=== PATIENT | female | born 1995 | race Caucasian/White ===

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

== ENCOUNTER 2017-11-06 01:27 | Inpatient (IN) | payer BC ==
[2017-11-06 02:09] LABS: ABS Basophils 0 10^3/ul (0-0.2); ABS Eosinophils 0 10^3/ul (0-0.6); ABS Lymphocytes 1.7 10^3/ul (1.0-4.8); ABS Monocytes 0.3 10^3/ul (0-0.8); ABS Neutrophils 3.6 10^3/ul (1.5-7.7); ABS Nucleated RBC 0 10^3/ul; Eosinophil % 0.3 % (0-6); Hematocrit 41 % (35-47); Hemoglobin 13.6 g/dl (12.0-16.0); Lymphocyte % 29.7 % (25-47); Mean Corpuscular HGB Conc 34 g/dl (31-36); Mean Corpuscular Hemoglobin 29 pg (27-31); Mean Corpuscular Volume 87 fL (80-97); Mean Platelet Volume 8.8 um3 (7.4-10.4); Nucleated Red Blood Cells % 0; Platelet Count 223 10^3/ul (150-450); Red Blood Count 4.66 10^6/ul (4.0-5.4); Red Cell Distribution Width 14 % (10.5-15); White Blood Count 5.6 10^3/ul (3.5-10.8)
[2017-11-06 02:25] LABS: EGFR Non-African American 98.5 (>60)
[2017-11-06 02:44] LABS: Urine Appearance Clear; Urine Blood Negative (Negative); Urine Color Yellow; Urine Ketones Negative (Negative); Urine Protein Negative (Negative); Urine Specific Gravity 1.014 (1.010-1.030); Urine Urobilinogen Negative (Negative)
--- NOTE | 2017-11-06 05:53 | ED ---
Nick Gallagher Tecjoon, scribed for Flako Lawrence MD on 11/06/17 at 0159 . Psychiatric Complaint - HPI Summary HPI Summary: This patient is a 22 year old female BIBA to [facility] with a chief complaint of SI for approx. a year and a half. Patient presents to the hospital voluntarily for MHE. Patient states that she has been drinking, but denies any other drugs. Patient states she has SI, but denies a plan. Patient goes to the [facility] for therapy. Patient was supposed to go in June, but appointment was cancelled. Symptoms aggravated by nothing. Symptoms alleviated by nothing. Patient denies a plan, but states that shes thought about drowning herself. - History Of Current Complaint Chief Complaint: EDMentalHealth Time Seen by Provider: 11/06/17 01:47 Hx Obtained From: Patient Hx Last Menstrual Period: 08/07/16 Onset/Duration: Lasting Weeks, Still Present Timing: Constant Character: Depressed, Anxious Aggravating Factor(s): Nothing Alleviating Factor(s): Nothing Has Suicidal: Reports: Thoughts. Denies: With A Plan - Allergies/Home Medications Allergies/Adverse Reactions: Allergies Allergy/AdvReac Type Severity Reaction Status Date / Time No Known Allergies Allergy Verified 08/31/16 20:50 PMH/Surg Hx/FS Hx/Imm Hx Previously Healthy: Yes Opthamlomology History: Denies: Hx Legally Blind EENT History: Denies: Hx Deafness Psychiatric History: Reports: Hx Anxiety, Hx Depression Infectious Disease History: No Infectious Disease History: Denies: Traveled Outside the [place] in Last 30 Days - Family History Known Family History: Positive: Hypertension - Social History Alcohol Use: Weekly Hx Substance Use: No Substance Use Type: Reports: None Hx Tobacco Use: No Smoking Status (MU): Never Smoked Tobacco Review of Systems Negative: Fever Positive: Depressed, Other - SI All Other Systems Reviewed And Are Negative: Yes Physical Exam - Summary Physical Exam Summary: Appearance: Well appearing, no pain distress Skin: warm, dry, reflects adequate perfusion Head/face: normal Eyes: EOMI, TESSY ENT: normal Neck: supple, non-tender Respiratory: CTA, breath sounds present Cardiovascular: RRR, pulses symmetrical Abdomen: non-tender, soft Bowel Sounds: present Musculoskeletal: normal, strength/ROM intact Neuro: normal, sensory motor intact, A&Ox3 Psych: Depressed affect Triage Information Reviewed: Yes Vital Signs On Initial Exam: Initial Vitals Temp Pulse Resp BP Pulse Ox 98.3 F 74 16 124/84 100 11/06/17 01:42 11/06/17 01:42 11/06/17 01:42 11/06/17 01:42 11/06/17 01:42 Vital Signs Reviewed: Yes Diagnostics - Vital Signs Vital Signs Temp Pulse Resp BP Pulse Ox 11/06/17 01:42 98.3 F 74 16 124/84 100 - Laboratory Lab Results: Lab Results 11/06/17 11/06/17 11/06/17 Range/Units 01:52 01:57 02:10 WBC 5.6 (3.5-10.8) 10^3/ul RBC 4.66 (4.0-5.4) 10^6/ul Hgb 13.6 (12.0-16.0) g/dl Hct 41 (35-47) % MCV 87 (80-97) fL MCH 29 (27-31) pg MCHC 34 (31-36) g/dl RDW 14 (10.5-15) % Plt Count 223 (150-450) 10^3/ul MPV 8.8 (7.4-10.4) um3 Neut % (Auto) 64.5 (38-83) % Lymph % (Auto) 29.7 (25-47) % [place] % (Auto) 5.0 (0-7) % Eos % (Auto) 0.3 (0-6) % Baso % (Auto) 0.5 (0-2) % Absolute Neuts (auto) 3.6 (1.5-7.7) 10^3/ul Absolute Lymphs (auto) 1.7 (1.0-4.8) 10^3/ul Absolute Monos (auto) 0.3 (0-0.8) 10^3/ul Absolute Eos (auto) 0 (0-0.6) 10^3/ul Absolute Basos (auto) 0 (0-0.2) 10^3/ul Absolute Nucleated RBC 0 10^3/ul Nucleated RBC % 0 Sodium 140 (139-145) mmol/L Potassium 3.6 (3.5-5.0) mmol/L Chloride 106 (101-111) mmol/L Carbon Dioxide 23 (22-32) mmol/L Anion Gap 11 (2-11) mmol/L BUN 10 (6-24) mg/dL Creatinine 0.75 (0.51-0.95) mg/dL Est GFR ( Amer) 126.7 (>60) Est GFR (Non-Af Amer) 98.5 (>60) BUN/Creatinine Ratio 13.3 (8-20) Glucose 112 H (70-100) mg/dL Calcium 8.9 (8.6-10.3) mg/dL Total Bilirubin 0.30 (0.2-1.0) mg/dL AST 13 (13-39) U/L ALT 10 (7-52) U/L Alkaline Phosphatase 59 (34-104) U/L Total Protein 7.3 (6.4-8.9) g/dL Albumin 4.5 (3.2-5.2) g/dL Globulin 2.8 (2-4) g/dL Albumin/Globulin Ratio 1.6 (1-3) TSH 1.09 (0.34-5.60) mcIU/mL Beta HCG, Quant < 0.60 mIU/mL Urine Color Urine Appearance Urine pH (5-9) Ur Specific Walker (1.010-1.030) Urine Protein (Negative) Urine Ketones (Negative) Urine Blood (Negative) Urine Nitrate (Negative) Urine Bilirubin (Negative) Urine Urobilinogen (Negative) Ur Leukocyte Esterase (Negative) Urine Glucose (Negative) Salicylates < 2.50 (<30) mg/dL Urine Opiates Screen None detected (None Detect) Acetaminophen < 15 mcg/mL Ur Barbiturates Screen Presumptive positive A (None Detect) Ur Phencyclidine Scrn None detected (None Detect) Ur Amphetamines Screen None detected (None Detect) U Benzodiazepines Scrn None detected (None Detect) Urine Cocaine Screen None detected (None Detect) U Cannabinoids Screen None detected (None Detect) Serum Alcohol 128 H (<10) mg/dL 11/06/17 Range/Units 02:10 WBC (3.5-10.8) 10^3/ul RBC (4.0-5.4) 10^6/ul Hgb (12.0-16.0) g/dl Hct (35-47) % MCV (80-97) fL MCH (27-31) pg MCHC (31-36) g/dl RDW (10.5-15) % Plt Count (150-450) 10^3/ul MPV (7.4-10.4) um3 Neut % (Auto) (38-83) % Lymph % (Auto) (25-47) % [place] % (Auto) (0-7) % Eos % (Auto) (0-6) % Baso % (Auto) (0-2) % Absolute Neuts (auto) (1.5-7.7) 10^3/ul Absolute Lymphs (auto) (1.0-4.8) 10^3/ul Absolute Monos (auto) (0-0.8) 10^3/ul Absolute Eos (auto) (0-0.6) 10^3/ul Absolute Basos (auto) (0-0.2) 10^3/ul Absolute Nucleated RBC 10^3/ul Nucleated RBC % Sodium (139-145) mmol/L Potassium (3.5-5.0) mmol/L Chloride (101-111) mmol/L Carbon Dioxide (22-32) mmol/L Anion Gap (2-11) mmol/L BUN (6-24) mg/dL Creatinine (0.51-0.95) mg/dL Est GFR ( Amer) (>60) Est GFR (Non-Af Amer) (>60) BUN/Creatinine Ratio (8-20) Glucose (70-100) mg/dL Calcium (8.6-10.3) mg/dL Total Bilirubin (0.2-1.0) mg/dL AST (13-39) U/L ALT (7-52) U/L Alkaline Phosphatase (34-104) U/L Total Protein (6.4-8.9) g/dL Albumin (3.2-5.2) g/dL Globulin (2-4) g/dL Albumin/Globulin Ratio (1-3) TSH (0.34-5.60) mcIU/mL Beta HCG, Quant mIU/mL Urine Color Yellow Urine Appearance Clear Urine pH 6.0 (5-9) Ur Specific Walker 1.014 (1.010-1.030) Urine Protein Negative (Negative) Urine Ketones Negative (Negative) Urine Blood Negative (Negative) Urine Nitrate Negative (Negative) Urine Bilirubin Negative (Negative) Urine Urobilinogen Negative (Negative) Ur Leukocyte Esterase Negative (Negative) Urine Glucose Negative (Negative) Salicylates (<30) mg/dL Urine Opiates Screen (None Detect) Acetaminophen mcg/mL Ur Barbiturates Screen (None Detect) Ur Phencyclidine Scrn (None Detect) Ur Amphetamines Screen (None Detect) U Benzodiazepines Scrn (None Detect) Urine Cocaine Screen (None Detect) U Cannabinoids Screen (None Detect) Serum Alcohol (<10) mg/dL Result Diagrams: 11/06/17 01:52 11/06/17 01:57 Lab Statement: Any lab studies that have been ordered have been reviewed, and results considered in the medical decision making process. Course/Dx - Course Course Of Treatment: Pt had been drinking. Sobered and cleared medically for crisis eval. After eval she was accepted for voluntary admission to psychiatric unit. - Differential Dx/Clinical Impression Differential Diagnosis/HQI/PQRI: Positive: Alcohol Intoxication, Depression, Suicidal Ideation Provider Diagnosis: Suicidal ideation, Depression Discharge - Sign-Out/Discharge Documenting (check all that apply): Discharge - Discharge Plan Condition: Stable Disposition: HOME - Billing Disposition and Condition Condition: STABLE Disposition: HOME The documentation as recorded by the Nick reed Tecjoon accurately reflects the service I personally performed and the decisions made by , Flako Lawrence MD.
[2017-11-06] MEDS ORDERED: Vitamin THERAPEUTIC TAB ONE (06:22)
[2017-11-06] MEDS ORDERED: Al Hydrox/Mg Hydrox/Simet LIQ* 30 ML UDC PO PRN (06:37)
[2017-11-06] MEDS ORDERED: Acetaminophen TAB* 325 MG PO PRN (06:37)
[2017-11-06] MEDS: Vitamin THERAPEUTIC TAB PO SCH (07:41)
--- NOTE | 2017-11-06 22:40 | HP ---
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 CHIEF COMPLAINT: "I was intoxicated and thinking about ending my life by drowning myself." HISTORY OF PRESENT ILLNESS: This is first lifetime psychiatric hospitalization for Gem who called the ambulance because she was feeling severely depressed and thinking about suicide by drowning herse lf in the bathtub. Although Gem denies any thoughts of suicide at this time, she acknowledges that she has been depressed since she was a high school student and her depression has been worse in the recent past. She reports of almost a week or more, at this time, of sadness, crying spells, low self -esteem, and low self-worth. Thoughts of suicide has been there, but it got worse recently and last night she was thinking about drowning herself into her bathtub. She also reports that she has been d rinking, at least a couple of times, with her peers or senior friends and was getting drunk. Last ni ght her blood alcohol level was 128, which is over legal limit. She also reported in the emergency r oom that if she was left alone by herself she would have killed herself. She thinks she is less than others and not happy about herself. She also wants to belong to the group or a group of peers, and n ot be left alone. She started drinking only because of that reason. PAST PSYCHIATRIC HISTORY: She has been depressed since she was 17 or 18, received treatment in the [facility] sporadically and since she came to [facility] she saw mental health professionals at [facility]. She took some antidepressant, that she does not remember the name of, for more than a ye ar and took herself off because she thought she was less as an individual because of the medications and then her depression got worse and she was started back on Lexapro, which made her too sedated dur ing the daytime that she could not stay up in her class and she took herself off of Lexapro. Now, wi th worsening depression, she has been trying to get an appointment with her psychiatrist or any psych iatrist to get back to medications, but repeatedly her appointments were cancelled and she was resort ing to drinking more than usual and that led to her coming to the emergency room and hospitalization last evening. She is not on any medication at this time. PAST MEDICAL HISTORY: Unremarkable. ALLERGIES: No known drug allergies. SUBSTANCE ABUSE HISTORY: Other than drinking alcohol twice a week and sometimes excessively, she den ies using any street drugs. She also denies experiencing any withdrawal symptoms if she did not drin k or when she is not drinking. FAMILY HISTORY: She reports that her younger brother suffers from OCD and anxiety. PERSONAL AND SOCIAL HISTORY: Gem is from [place], born and raised in a farming community. Her fa ther is a hodge, that is why she came to study about farming or agricultural science at [employer]. Flaquito morgan is not involved in any significant relationships. No legal problems at all. PHYSICAL EXAMINATION GENERAL: Gem is a moderately obese, average height, female who is appropriately dressed and fairly groomed, with fair personal hygiene. HEENT: Head: Atraumatic, normocephalic. Eyes: EOMI, PERRLA. Oral Cavity: Good oral hygiene. In tact teeth. NECK: Supple, midline trachea, no lymph node or thyroid enlargement. RESPIRATORY: Breath sounds audible bilaterally. No added sounds. CARDIOVASCULAR: Heart rate regular. S1 and S2 only. ABDOMEN: Moderately obese, but soft and nontender. No organomegaly. Positive bowel sounds. MUSCULOSKELETAL: With normal strength and intact ROM. NEUROLOGIC: Alert and oriented to time, place, and person. Cranial nerves II through XII intact francine ssly. MENTAL STATUS EXAM: Alert and oriented to time, place, and person, makes good eye contact. Speech is normal in all spheres. Describes the mood as depressed. Observed affect is sad and tearful. Thou ght process is logical and goal directed. Thought content devoid of any delusions and denies any suic idal or homicidal ideations, also denies any perceptual disturbances. Intelligence is average as demi denced by her vocabulary and education. Memory function is intact in all spheres. Insight and judgm ent impaired. SUMMARY: This 22-year-old female, [employer] [facility] student, with history of depression s alexis teenage years, has been drinking at least a couple of times per week, was verbalizing suicidal t houghts with plan last evening while intoxicated. She is not on any treatment at this time. DIAGNOSTIC IMPRESSION: MENTAL HEALTH DIAGNOSIS: Major depressive disorder, recurrent, severe, without psychotic features. Alcohol use disorder. PHYSICAL HEALTH DIAGNOSIS: None. TREATMENT RECOMMENDATIONS: Gem will remain hospitalized on behavioral science unit for her safety and stabilization of acute depressive symptoms. Her code status will remain full. Supportive milie u, individual and group therapy will be initiated. Treatment for depression was discussed with multi ple plans, with risks, benefits and alternatives. Gem verbalized her understanding and wants to tr y Wellbutrin. Hence, I will prescribe her Wellbutrin XL 150 mg once a day and see if she tolerates i t. Rest of the treatment will be deferred to her assigned psychiatrist. Gem and her mom are insis ting to be discharged; however, under the circumstances, she is unsafe to be discharged home without a safe discharge plan in place. [id number]/[facility] #: [id number]
[2017-11-07] MEDS: Vitamin THERAPEUTIC TAB PO SCH (10:16)
[2017-11-08 07:36] VITALS: BP 136/77
[2017-11-08] MEDS: Vitamin THERAPEUTIC TAB PO SCH (09:56)
[2017-11-08] MEDS ORDERED: BuPROPion XL* 150 MG TAB.XL PO SCH (15:00)
--- NOTE | 2017-11-09 03:13 | DS ---
CC: [facility] * DISCHARGE SUMMARY: DATE OF ADMISSION: 11/06/17 DATE OF DISCHARGE: 11/08/17 SUPERVISING PSYCHIATRIST: Madan Avila MD.* (DICTATED BY ASUNCION ROSALES NP) DISCHARGE DIAGNOSES: 1. Unspecified depressive disorder. 2. Alcohol use. CONDITION AT TIME OF DISCHARGE: Improved. The patient denies depressed mood or suicidal ideation. She identifies that use of alcohol and migraine medicine during a depressive state were dangerous and she vows not to do so again. She identifies that alcohol use has been increasingly problematic and that she plans to moderate her alcohol use, but she denies need for substance use treatment. The patient states "I'm a type of person that keep going" and denies suicidal ideations. She reports that combination of stressors of school and not having active mental health care were factors in presentation to the emergency department. This copy writer spoke with the patient's mother, Ashley Hunter, who is a psychologist. She advocates for her daughter's discharge today and states that continued hospitalization will likely further decompensate. She states that she is very close with her daughter and identifies that the family is going to be more proactive in terms of seeking mental health treatment. Ms. Hunter reports that she is not concerned about suicidality. She appreciates that Gem 's friends brought her to the emergency department, but she does not see the need for continued hospitalization. She denies the patient has a history of self-harm. Ms. Hunter states that her , Christian Hoang, will be coming this weekend to spend time with Gem and that she will as well as soon as she can, she states that her daughter does not want her to immediately, wants to be able to return to her normal scheduling. MENTAL STATUS EXAM: Gem is a 22-year-old white female who appears stated age. She is well groomed, just completed ADLs. She is wearing her own clothing and has dark-rimmed glasses. She is alert and oriented x3. She is cooperative and pleasant in interview. Eye contact is good. Speech is soft and articulate. She reports mood is "okay." Her affect is congruent. Thought process is logical, goal directed, and forward thinking. Thought content; denies SI, HI, AV, hallucinations to personalization of delusions. Her insight and judgment are good. Her fund of knowledge is excellent. Her memory is 3/3. DISCHARGE INSTRUCTIONS GIVEN TO PATIENT: A. Medications: Bupropion XL 150 mg, this was electronically prescribed to [facility] on [address] per the patient's request. B. Diet: Regular. C. Activity: Ambulation as tolerated. D. Tobacco cessation is not applicable. There are no studies pending at the time of discharge. E. Followup care: The patient will follow up with [facility], and she will followup as needed with primary care. She will follow up on the day of discharge at 1 p.m. with [facility] and from there would be referred to a consistent therapist along with psychiatry. F. Substance abuse followup: The patient declined referral for alcohol use treatment and declined medication for alcohol use treatment. HOSPITAL COURSE - PART A: Reason for admission: She was brought to the emergency department by ambulance due to suicidal ideation and a plan to drown herself in her bathtub. It was the first lifetime psychiatric hospitalization for Gem who called the ambulance because she was really severely depressed and thinking about suicide by drowning herself. She had also reached out to her friends who were worried and made sure that she was being taken care of. The patient was intoxicated upon arrival. The alcohol level was 128. She was hospitalized on 9.39 status due to risk for self-harm and limited anxiety. She agreed to start Wellbutrin for depression and will continue this trial while awaiting an appointment with the psychiatrist at [facility]. HOSPITAL COURSE - PART B: Psychiatric treatment rendered: As stated above, the patient was admitted to adult [facility] on involuntary status 9:39. Her lab data from the emergency department was within normal limits with the exception of positive barbiturates, which coincide with the patient's Fioricet or migraine medicine. Her alcohol level was 128. There was no need for further testing via blood work. She completed an MMDI, which endorsed mild depression. The patient was cooperative with team. She was allowed computer use, decreased to 30-minute observation and allowed a staff pass. She was calm and her behavior controlled. Today, she was agreeable to meet with treatment team and discuss after care options and reported appreciation for help in establishing mental health services again. ASUNCION ROSALES, QUOTATION CHECKER [id number]/[facility] #: [id number] [place]
== END 2017-11-08 12:20 | disposition home or self-care (01) | DRG 754 ==
LOC: ED 01:27 → BSU 04:57
PROVIDERS: ADMIT Psychiatry & Neurology Psychiatry; ATTEND Psychiatry & Neurology Psychiatry
DX: F32.9 Major depressive disorder, single episode, unspecified (principal); R45.851 Suicidal ideations; F10.129 Alcohol abuse with intoxication, unspecified; Y90.6 Blood alcohol level of 120-199 mg/100 ml; Z81.8 Family history of other mental and behavioral disorders; E66.9 Obesity, unspecified
CPT/HCPCS: 36415; 80053; 80307; 80320; 80329; 81003; 84443; 84702; 85025; 99222; 99285; A9270-GY; G0480

== ENCOUNTER 2018-02-01 22:41 | Emergency (ER) | payer BC ==
[2018-02-01] MEDS ORDERED: methylPREDNISolone 125 MG* 2 ML VIAL IV ONE (23:00)
[2018-02-01] MEDS ORDERED: diPHENhydraMINE IV* 50 MG/ML 1 ml VIAL (BENADRYL) IV ONE (23:00)
[2018-02-01] MEDS ORDERED: Famotidine IV* 10 MG/ML 2 ML (20 mg) IV SLOW PU ONE (23:00)
[2018-02-01] MEDS ORDERED: NS 0.9% 1000 ML* 1,000 ML IV ONE (23:01)
[2018-02-01] MEDS ORDERED: EPINEPHrine AMP 1 MG/ML IM ONE (23:01)
--- NOTE | 2018-02-01 23:15 | ED ---
Allergic Reaction/Systemic - HPI Summary HPI Summary: Pt is a 22 y/o F who presents to ED due to allergic reaction. At about 2200, she began experiencing hives on the bilateral LE and back with lip swelling. Per nurse's triage, chest "tightness" is also noted. 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 Prior similar episodes for the past 2 months, following up with an crib pad maker. - History of Current Complaint Chief Complaint: EDAllergicReaction Time Seen by Provider: 02/01/18 22:58 Hx Obtained From: Patient Hx Last Menstrual Period: 08/07/16 Onset/Duration: Sudden Onset, Started hours ago - ~1 hr, Still Present Timing: Lasting Hours Severity Currently: None Pain Intensity: 0 Pain Scale Used: 0-10 Numeric Location: Other - scattered Character: Swelling - Upper lip, Hives - Trunk and bialteral LE Aggravating Factor(s): Nothing Alleviating Factor(s): Nothing Associated Signs And Symptoms: Positive: Rash. Negative: Difficulty Breathing - Per home health occupational therapist., Hoarseness - Per home health occupational therapist. - Related Hx Possible Reaction To: Unknown - Allergies/Home Medications Allergies/Adverse Reactions: Allergies Allergy/AdvReac Type Severity Reaction Status Date / Time No Known Allergies Allergy Verified 02/01/18 22:51 PMH/Surg Hx/FS Hx/Imm Hx GI History: Reports: Hx Gastroesophageal Reflux Disease Sensory History: Reports: Hx Contacts or Glasses - both Denies: Hx Legally Blind, Hx Deafness, Hx Hearing Aid Opthamlomology History: Reports: Hx Contacts or Glasses - both Denies: Hx Legally Blind Neurological History: Reports: Hx Migraine Psychiatric History: Reports: Hx Anxiety, Hx Depression, Hx Community Mental Health Tx Denies: Hx Eating Disorder, Hx Suicide Attempt, Hx of Violent Episodes Against Others - Surgical History Surgery Procedure, Year, and Place: wisdom teeth removed last summer Infectious Disease History: No Infectious Disease History: Denies: Traveled Outside the [place] in Last 30 Days - Family History Known Family History: Positive: Hypertension - Social History Occupation: Student Lives: With Family - Mother Alcohol Use: states four mixed drinks every Wednesday and Wednesday Hx Substance Use: No Substance Use Type: Reports: None Hx Tobacco Use: No Smoking Status (MU): Never Smoked Tobacco Have You Smoked in the Last Year: No Review of Systems Negative: Fever Positive: Other - NEGTAIVE: Hoarse voice Positive: Other - Chest "tightness" Positive: Other - NEGATIVE: Difficulty breathing Positive: Other - Upper lip swelling Positive: Rash - Hives - Trunk, LE's All Other Systems Reviewed And Are Negative: Yes Physical Exam - Summary Physical Exam Summary: VITAL SIGNS: Reviewed. GENERAL: Patient is a well-developed and nourished female who is lying comfortable in the stretcher. Patient is not in any acute respiratory distress. HEAD AND FACE: No signs of trauma. No ecchymosis, hematomas or skull depressions. No sinus tenderness. EYES: PERRLA, EOMI x 2, No injected conjunctiva, no nystagmus. EARS: Hearing grossly intact. Ear canals and tympanic membranes are within normal limits. MOUTH: Soft palate & oropharynx within normal limits. Upper lip swollen. NECK: Supple, trachea is midline, no adenopathy, no JVD, no carotid bruit, no c- spine tenderness, neck with full ROM. CHEST: Symmetric, no tenderness at palpation LUNGS: Clear to auscultation bilaterally. No wheezing or crackles. CVS: Regular rate and rhythm, S1 and S2 present, no murmurs or gallops appreciated. ABDOMEN: Soft, non-tender. No signs of distention. No rebound no guarding, and no masses palpated. Bowel sounds are normal. EXTREMITIES: FROM in all major joints, no edema, no cyanosis or clubbing. NEURO: Alert and oriented x 3. No acute neurological deficits. Speech is normal and follows commands. SKIN: Dry and warm. Diffuse, scattered, maculopapular rash Triage Information Reviewed: Yes Vital Signs On Initial Exam: Initial Vitals Temp Pulse Resp BP Pulse Ox 98.8 F 102 20 127/89 98 02/01/18 22:45 02/01/18 22:45 02/01/18 22:45 02/01/18 22:45 02/01/18 22:45 Vital Signs Reviewed: Yes Diagnostics - Vital Signs Vital Signs Temp Pulse Resp BP Pulse Ox 02/01/18 22:45 98.8 F 102 20 127/89 98 - Laboratory Lab Statement: Any lab studies that have been ordered have been reviewed, and results considered in the medical decision making process. Allergic Reaction Course/Dx - Course Assessment/Plan: Pt is a 22 y/o F who presents to ED due to allergic reaction. At about 2200, she began experiencing hives on the bilateral LE and back with lip swelling. Per nurse's triage, chest "tightness" is also noted. In the ED course, pt was given Benadryl, Epinephrine, Pepcid, Solu-medrol, and fluids. Patient will be discharged with follow up from PCP. Pt is agreeable with this plan. - Diagnoses Provider Diagnoses: Allergic reaction Discharge - Sign-Out/Discharge Documenting (check all that apply): Patient Departure - D/C - Discharge Plan Condition: Stable Disposition: HOME Prescriptions: hydrOXYzine pamoate [Vistaril] 50 mg PO Q6H PRN #20 cap PRN Reason: Itching predniSONE TAB* [Deltasone TAB*] 50 mg PO DAILY #5 tab Patient Education Materials: General Allergic Reaction (ED) Referrals: No Primary Care Phys,NOPCP [Primary Care Provider] - [facility] [Outside] - 2 Days Additional Instructions: Return to emergency department for changing or worsening symptoms.
[2018-02-01] MEDS ORDERED: EPINEPHRINE 1 MG/ML 1 ML VIAL ONE (23:34)
[2018-02-02 00:17] VITALS: BP 121/60
== END 2018-02-02 00:15 | disposition home or self-care (01) ==
LOC: ED 22:41
DX: T78.40XA Allergy, unspecified, initial encounter (principal); R21 Rash and other nonspecific skin eruption; X58.XXXA Exposure to other specified factors, initial encounter
CPT/HCPCS: 96374; 96375; 99282; J0171; J1200; J2930

== ENCOUNTER 2018-02-18 19:23 | Emergency (ER) | payer BC ==
--- NOTE | 2018-02-18 19:34 | ED ---
Allergic Reaction/Systemic - HPI Summary HPI Summary: Patient presents with allergic reaction that started around 1645 today. She reports she developed generalized hives with itching initially. This led to what felt like upper lip swelling and chest pressure - "like I swallowed an elephant". Denies throat, mouth or face swelling otherwise and no nausea/ vomiting or trouble breathing or swallowing. She took 50 mg of Benadryl by mouth prior to going to [address] [place] [address] urgent care where she received 10 mg of Decadron IV before being sent over by ambulance. She reports her symptoms have not advanced since these medications and she is feeling okay at the moment other than some persistent chest pressure. Denies fatigue, nausea, abdominal pain, headache, shortness of breath, chest tightness or difficulty breathing, wheezing. When discussing which she thinks caused this, she reports she's not sure. She does admit she has wheat, barley, soy and rye allergies. Had cereal this morning (frosted flakes with milk) and a pot roast instant meal for lunch at about noon, both of which she's had before without issues. 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 She reports she had pulled pork and yakut fries out for dinner however her symptoms started prior to her consuming these foods. She was seen in January for similar reaction which did not require epinephrine. Although she has an EpiPen, she's never had to use it nor has she ever received epinephrine for her allergic reactions. She did receive 5 days of prednisone at her last discharge and reports this helped although symptoms seem to return to days after cessation of prednisone. [facility]. Denies any other medical issues including but not limited to asthma, eczema, and anaphylaxis. - History of Current Complaint Time Seen by Provider: 02/18/18 19:24 Hx Obtained From: Patient Hx Last Menstrual Period: 08/07/16 - Allergies/Home Medications Allergies/Adverse Reactions: Allergies Allergy/AdvReac Type Severity Reaction Status Date / Time barley Allergy Hives/Diff. Verified 02/18/18 19:31 Breathing/I tching soy Allergy Hives/Diff. Verified 02/18/18 19:31 Breathing/I tching wheat Allergy Hives/Diff. Verified 02/18/18 19:31 Breathing/I tching rye Allergy Hives/Diff. Uncoded 02/18/18 19:31 Breathing/I tching PMH/Surg Hx/FS Hx/Imm Hx Previously Healthy: Yes Endocrine/Hematology History: Denies: Autoimmune Disease - no eczema Respiratory History: Denies: Hx Asthma GI History: Reports: Hx Gastroesophageal Reflux Disease Sensory History: Reports: Hx Contacts or Glasses - both Denies: Hx Legally Blind, Hx Deafness, Hx Hearing Aid Opthamlomology History: Reports: Hx Contacts or Glasses - both Denies: Hx Legally Blind Neurological History: Reports: Hx Migraine Psychiatric History: Reports: Hx Anxiety, Hx Depression, Hx Community Mental Health Tx Denies: Hx Eating Disorder, Hx Suicide Attempt, Hx of Violent Episodes Against Others - Surgical History Surgery Procedure, Year, and Place: wisdom teeth removed last summer - Family History Known Family History: Positive: Hypertension - Social History Occupation: Student Alcohol Use: states four mixed drinks every Wednesday and Wednesday Hx Substance Use: No Substance Use Type: Reports: None Hx Tobacco Use: No Smoking Status (MU): Never Smoked Tobacco Have You Smoked in the Last Year: No Review of Systems Constitutional: Negative Negative: Fever, Chills, Fatigue Eyes: Negative Negative: Drainage, Erythema ENT: Negative Negative: Sore Throat, Ear Ache, Nasal Discharge Cardiovascular: Other - chest pressure Negative: Palpitations Respiratory: Negative Negative: Shortness Of Breath, Cough Gastrointestinal: Negative Negative: Abdominal Pain, Vomiting, Diarrhea, Nausea Positive: no symptoms reported Musculoskeletal: Negative Positive: Rash Neurological: Negative Psychological: Normal All Other Systems Reviewed And Are Negative: Yes Physical Exam Triage Information Reviewed: Yes Vital Signs Reviewed: Yes Appearance: Positive: Well-Appearing, No Pain Distress, Well-Nourished Skin: Positive: Warm, Skin Color Reflects Adequate Perfusion, Dry - urticarial rash with confluence over chest, proximal extremities and torso - no vesicles, no streaking/patterns Head/Face: Positive: Normal Head/Face Inspection Eyes: Positive: Normal, EOMI, Conjunctiva Clear. Negative: Conjunctiva Inflammed, Discharge ENT: Positive: Normal ENT inspection, Hearing grossly normal, Pharynx normal - mucosa moist. Negative: Nasal congestion, Nasal drainage, Trismus, Muffled voice, Hoarse voice Neck: Positive: Supple, Nontender, No Lymphadenopathy Respiratory/Lung Sounds: Positive: Clear to Auscultation, Breath Sounds Present. Negative: Rales, Rhonchi, Stridor, Wheezes, Unable to speak in full sentences, Fatigue Cardiovascular: Positive: Normal, RRR, S1, S2. Negative: Murmur, Rub, Leg Edema Left, Leg Edema Right Abdomen Description: Positive: No Organomegaly, Soft, Other: - mild discomfort w / palpation - reports it feels like I'm pushing gas around - no sharp pain Bowel Sounds: Positive: Present Musculoskeletal: Positive: Normal, Strength/ROM Intact Neurological: Positive: Normal, Sensory/Motor Intact, Alert, Oriented to Person Place, Time, CN Intact II-III Psychiatric: Positive: Normal Re-Evaluation - Re-Evaluation First Eval Change: Improved - resolved lip swelling sensation, itching rash less and overall improved - still has chest pressure despite pepcid - will check ECG - vitals have been normal and no new sx Second Eval Change: Improved - chest pressure resolved - feels better Allergic Reaction Course/Dx - Course Course Of Treatment: Pt here w/ allergic reaction. Denies h/o epinephrine use however she was given this medication at last visit along with pepcid, prednisone and IV fluids. She was d/c'd w/ 50mg prednisone daily x 5 and pt reports some sx returned after 2 days of cessation (they were mild and eventually dissipated). Here she does not exhibit any sx of anaphylaxis. Remarks that she had relief with benadryl 50mg PO prior to arrival along w/ decadron 10mg (received at [facility] prior to arrival) and pepcid + fluids. She does admit to chest pressure so ECG was ordered - NSR, 69 Bpm, no ST elevations. BP is stable throughout course of stay. Chest pressure improved before d/c. Will provide longer course of taper down steroid at d/c. Reviewed danger s/sx of when to return to ED. Also discussed w/ parents. Pt agrees w/ plan. - Diagnoses Provider Diagnoses: Allergic reaction Discharge - Sign-Out/Discharge Documenting (check all that apply): Patient Departure - Discharge Plan Condition: Stable Disposition: HOME Prescriptions: predniSONE TAB* [Deltasone 10 MG TAB*] 10 mg PO DAILY #45 tab Patient Education Materials: General Allergic Reaction (ED) Forms: *School Release Referrals: Deangelo Chavez MD [Medical Doctor] - Additional Instructions: The cause of your allergic reaction was not identified today however you have many known environmental allergens and may have been exposed to some of them today prior to symptoms starting. You had relief with 50 mg of Benadryl, Pepcid and Decadron, a steroid. You'll be continued on a steroid at home with a taper dosage as you report your symptoms seemed to return 2 days after stopping steroid last time. Stay hydrated with water. You may continue benadryl at home as well as needed for skin itching. Avoid hot showers, exercise that may induce sweating/heat as this may make rash worse. You aleady have an EpiPen and may use this in the event of anaphylaxis which may include lip, tongue or throat swelling or tightness, difficulty breathing or swallowing. If you administer this for yourself, call 911 and go to the nearest ED immediately. [facility] this [facility] as scheduled. If you have any return of symptoms or difficulty swallowing or breathing, return to the emergency department as directed above. - Billing Disposition and Condition Condition: STABLE Disposition: Home
[2018-02-18] MEDS ORDERED: NS 0.9% 1000 ML* 1,000 ML IV ONE (19:37)
[2018-02-18] MEDS ORDERED: Famotidine IV* 10 MG/ML 2 ML (20 mg) IV SLOW PU ONE (19:37)
--- OUTSIDE RECORDS SUMMARY | 2018-02-18 19:57 | XMS REPORT ---
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 Clifton Stephenson MD Primary Care Physician Unavailable Payers Type Date Identification Numbers Payment Provider Subscriber Commercial Policy Number: [id number] [facility] [employer] Ashley Mendez [place] PayID: [id number] [address] [address] [place] [address] Problems Date Description Provider Status Onset: 01/24/2018 Allergy to other foods Eric Martins MD Active Onset: 01/24/2018 Allergic urticaria Eric Martins MD Active Social History Type Date Description Comments Smoke-Free Home is smoke-free Pets 1 cat Cigarette Use Never Smoked Cigarettes Smoking Patient has never smoked Smoking No Second Hand Smoke Exposure Allergies, Adverse Reactions, Alerts Date Description Reaction Status Severity Comments 01/24/2018 NKDA active Medications Medication Date Status Form Strength Qnty SIG Indications Ordering Provider Fexofenadine 02/03/ Active Tablets 180mg 30tab take 1 L50.0 Christopher HCL 2018 s tablet by Shilpa Martins MD mouth every day as needed Xyzal Allergy 01/24/ Active Tablets 5mg 30tab take 1 L50.0 Christopher 24HR 2018 s tablet (5 Shilpa Martins MD mg) by mouth every night at bedtime Auvi-Q 01/24/ Active Solution 0.3mg/0.3M 4unit use as Z91.018 Christopher 2018 Auto-Injec L s directed Shilpa Martins MD t No Active 07/02/ Hx Unknown Medications 2018 - 2017 Clarinex Tablets 5mg 30tab one L50.0 Eric 2018 - s tablet Shilpa Martins MD in 2018 the morning Vital Signs Date Vital Result Comment 02/04/2018 BP Systolic 122 mmHg BP Diastolic 84 mmHg Height 63 inches 5'3" Weight 150.00 lb BMI (Body Mass Index) 26.6 kg/m2 Heart Rate 92 /min Respiratory Rate 16 /min Body Temperature 97.6 F O2 % BldC Oximetry 98 % 01/24/2018 Height 63 inches 5'3" Weight 150.00 lb BMI (Body Mass Index) 26.6 kg/m2 Heart Rate 94 /min Respiratory Rate 16 /min O2 % BldC Oximetry 98 % Results Test Date Test Result H/L Range Note Order 01/24/2018 Epinephrine Injector Training <pending> Procedures Date CPT Code Description Status 01/24/2018 26988 Education/Training PT Self-Management Each 30Minutes Completed Indiv PT Encounters Type Date Location Provider CPT E/M Dx Office Visit 01/24/2018 9:00a [place] [address] L50.0 Z91.018 Plan of Care 01/24/2018 - Eric Martins MDL50.0 Allergic urticariaNew Medication: Xyzal Allergy 24HR 5 mgClarinex 5 mgZ91.018 Allergy to other foodsNew Medication :Auvi-Q 0.3 mg/0.3ML
--- OUTSIDE RECORDS SUMMARY | 2018-02-18 19:57 | XMS REPORT ---
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 Clifton Stephenson MD Primary Care Physician Unavailable Payers Type Date Identification Numbers Payment Provider Subscriber Commercial Policy Number: [id number] [facility] [employer] Ashley Mendez [place] PayID: [id number] [address] [address] [place] [address] Problems Date Description Provider Status Onset: 01/24/2018 [...] directed Shilpa Martins MD t No Active Unknown Medications 2017 - 2017 Clarinex Tablets 5mg 30tab one L50.0 Eric Cary s tablet Shilpa Martins MD in 2018 [...] Procedures Date CPT Code Description Status 01/24/2018 51034 Education/Training PT Self-Management Each 30Minutes Completed Indiv PT Encounters Type Date Location Provider CPT E/M Dx Office Visit 02/04/2018 8:30a MARISA Duggan [address]126 L50.0 Z91.018 Office Visit 01/24/2018 9:00a [place] [address] L50.0 Z91.018 Plan of Care 02/04/2018 - KELSIE Viramontes50.0 Allergic urticariaComments:Patient's CBC, Liver , Thyroid tested unremarkable. Patient RAST tested Class 1 to barley, rye and wheat. Patient is to strictly avoid these 3 food groups for 2-3 weeks. Patient can then reintroduce these foods one at a time in a small quantity and observe for any allergic reaction. If no reaction, patient can increase food portion size and continue this process for a week. If no allergic reaction, patient can resume this food group. Patient will repeat this process for the next food group.Patient can use Clarinex and Xyzal for suppressive antihistamine therapy if urticaria persists. Patient canalso take benadryl for breakthrough uticaria symptoms.Patient has an Auvi-Q. Patient to carry Auvi-Q with her at all times. Patient instructed how and when to use Auvi-Q. Greater than 50% of the 25- minute visit was spent in discussion of the testing results and treatment options.Z91.018 Allergy to other foods
--- OUTSIDE RECORDS SUMMARY | 2018-02-18 19:57 | XMS REPORT ---
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 Clifton Stephenson MD Primary Care Physician Unavailable Payers Type Date Identification Numbers Payment Provider Subscriber Commercial Policy Number: [id number] [facility] [employer] Ashley Mendez [place] PayID: [id number] [address] [place] [address] Problems Date Description Provider Status Onset: 01/24/2018 [...] Form Strength Qnty SIG Indications Ordering Provider Clarinex 01/24/ Active Tablets 5mg 30tabs one L50.0 Christopher 2017 tablet Shilpa Martins MD every in the morning Xyzal Allergy 01/24/ Active Tablets 5mg 30tabs take 1 L50.0 Christopher 24HR 2017 tablet (5 Shilpa Martins MD mg) by mouth every night at bedtime Auvi-Q 01/24/ Active Solution 0.3mg/0.3M 4units use as Z91.018 opher 2017 Auto-Injec Claudia Martins MD t No Active 01/24/ Hx Unknown Medications 2018 - 2017 Vital Signs Date Vital Result Comment 01/24/2018 Height 63 inches 5'3" Weight 150.00 lb BMI (Body Mass Index) 26.6 kg/m2 Heart Rate 94 /min Respiratory Rate 16 /min O2 % BldC Oximetry 98 % Results Test Date Test Result H/L Range Note Order 01/24/2018 Epinephrine Injector Training <pending> Procedures Date CPT Code Description Status 01/24/2018 28682 Education/Training PT Self-Management Each 30Minutes Completed Indiv PT Encounters Type Date Location Provider CPT E/M Dx Office Visit 01/24/2018 9:00a [place] [address] L50.0 Z91.018 Plan of Care Future Appointment(s):02/18/2018 10:00 am - MAR[facility] Viramontes at [facility]/24/2018 - Eric Martins MDL50.0 Allergic urticariaNew Medication:Clarinex 5 mgXyzal Allergy 24HR 5 mgZ91.018 Allergy to other foodsNew Medication:Auvi-Q 0.3 mg/0.3ML
--- OUTSIDE RECORDS SUMMARY | 2018-02-18 19:57 | XMS REPORT ---
:1995 External Reference #:[id number] Author Organization [facility] Address [address] [place] [address] Phone [phone] Care Team Providers Name Role Phone Clifton Stephenson MD Care Team Information Slipman Unavailable Clifton Stephenson MD Primary Care Physician Unavailable Payers Type Date Identification Numbers Payment Provider Subscriber Commercial Policy Number: [id number] [facility] [employer] Ashley Hunter PayID: [id number] [address] [address] [place] [address] Problems Description No Information Social History Type Date Description Comments Smoke-Free Home is smoke-free Pets 1 cat Cigarette Use Never Smoked Cigarettes Allergies, Adverse Reactions, Alerts Date Description Reaction Status Severity Comments 01/24/2018 NKDA active Medications Medication Date Status Form Strength Qnty SIG Indications Ordering Provider No Active 01/24/2018 Active Unknown Medications Vital Signs Date Vital Result Comment 01/24/2018 Height 63 inches 5'3" Weight 150.00 lb BMI (Body Mass Index) 26.6 kg/m2 Heart Rate 94 /min Respiratory Rate 16 /min O2 % BldC Oximetry 98 % Results Description No Information Procedures Description No Information Plan of Care No Information Available
[2018-02-18] MEDS ORDERED: Acetaminophen TAB* 325 MG PO ONE (20:21)
[2018-02-18 21:28] VITALS: BP 108/63
== END 2018-02-18 21:30 | disposition home or self-care (01) ==
LOC: ED 19:23
DX: T78.40XA Allergy, unspecified, initial encounter (principal); R21 Rash and other nonspecific skin eruption; X58.XXXA Exposure to other specified factors, initial encounter
CPT/HCPCS: 93005; 96374; 99283; A9270-GY